=== PATIENT | male | born 1975 | race Caucasian/White ===

== ENCOUNTER 2024-04-04 11:33 | Inpatient (IN) | payer BC, SELFPAY ==
--- NOTE | ~2024-04-04 | US_ITS ---
EXAMINATION: US renal BI DATE: 04/05/2024 07:51 INDICATION: Acute kidney injury. TECHNIQUE: Multiple ultrasound grayscale images of the kidneys were obtained. COMPARISON: CT abdomen and pelvis 04/04/2024 FINDINGS: The right kidney measures 14.0 x 6.2 x 6.2 cm. The left kidney measures 13.1 x 6.4 x 5.1 cm. The kidn eys demonstrate normal parenchymal echogenicity. There is no hydronephrosis. The bladder is normal. T here is diffuse hepatic steatosis. IMPRESSION: 1. Normal kidneys. No hydronephrosis. 2. Diffuse hepatic steatosis. Reviewed, dictated and finalized at location A.
--- NOTE | ~2024-04-04 | CT_ITS ---
EXAMINATION: CT abdomen pelvis wo con DATE: 04/04/2024 13:23 INDICATION: Abdominal pain. Nausea and vomiting. Diarrhea. TECHNIQUE: Computed tomography (CT) of the abdomen and pelvis was performed without intravenous contr ast. Automated exposure control and iterative reconstruction technique were employed. The dose-length product was 913.08 mGy-cm. COMPARISON: None. FINDINGS: The visualized portions of the lung bases demonstrate mild atelectasis. No pleural effusion . The heart size is normal. No pericardial effusion. There is diffuse hepatic steatosis. The gallblad roberto, spleen, pancreas, adrenal glands, and left kidney are normal. There is a 1 mm stone in right kid mayur. There is diverticulosis of the colon without evidence of diverticulitis. There is liquid stool i n the colon correlating with the symptom of diarrhea. The appendix is normal. There are no dilated lo ops of bowel. There are no pathologically enlarged lymph nodes. There is no free intraperitoneal flui d. There is mild thoracic and lumbar spondylosis. IMPRESSION: 1. Diffuse hepatic steatosis. Reviewed, dictated and finalized at location A.
[2024-04-04 11:38] VITALS: BP 129/73; PULSE 106; RESP 18; TEMP 36.4; O2SAT 100
--- NOTE | 2024-04-04 12:13 | ED.GENADULT ---
HPI - General Adult General Chief complaint: Nausea/Vomiting/Diarrhea Stated complaint: n/v Time Seen by Provider: 04/04/24 11:44 History of Present Illness HPI narrative: 48-year-old male with history of type 2 diabetes presenting to the emergency department for evaluation nausea vomiting and diarrhea. Patient states Wednesday he started developing some diarrhea, on Wednesday developed to nausea and vomiting, on Wednesday felt improved but on Wednesday night he started having both symptoms again. Patient is not on insulin but he is on Mounjaro. Related Data Home Medications Medication Instructions Recorded Confirmed amlodipine 2.5 mg tablet 2.5 mg PO DAILY 04/04/24 04/04/24 fenofibrate nanocrystallized 145 145 mg PO DAILY 04/04/24 04/04/24 mg tablet glimepiride 2 mg tablet 2 mg PO BID 04/04/24 04/04/24 lisinopril 40 mg tablet 40 mg PO DAILY 04/04/24 04/04/24 metformin 1,000 mg tablet,extended 1,000 mg PO BID 04/04/24 04/04/24 release 24hr (osmotic) sitagliptin phosphate 100 mg 100 mg PO DAILY 04/04/24 04/04/24 tablet (Januvia) Allergies Allergy/AdvReac Type Severity Reaction Status Date / Time No Known Allergies Allergy Verified 04/04/24 15:35 Review of Systems Review of Systems: All systems reviewed & are unremarkable except as noted in HPI and below PMFSH Family History Family History (Updated 04/04/24 @ 15:12 by Atul Chiu RN) Father Colon cancer Mother Diabetes mellitus Heart disease Social History Social History Smoking status: Never smoker Alcohol intake: never Substance use: never Do You Feel Safe in your Home?: Yes Lack of Transportation: No Lack of Food: Never True Current Housing: I Have Housing Concerned About Future Housing: No Difficulty Paying Gas/Electric Bills: No Difficulty Paying for Meds: No Currently Unemployed: No Education: Decline to Answer Difficulty w/ Childcare or Family Care: No Spiritual care concerns: No Exam Narrative: APPEARANCE: Well appearing, no pain, no distress, well-nourished. HEAD: normocephalic, atraumatic. EYES: PERRLA/EOMI, conjunctivae clear. NOSE: Normal no drainage EARS:TMS clear with good light reflex. THROAT: Pharynx clear, no exudate. NECK: Supple. No adenopathy, no masses. RESPIRATORY: Airway patent, respirations nonlabored. Clear to auscultation bilaterally, no rales, rhonchi, wheezing. CARDIOVASCULAR: Regular rate and rhythm without murmurs rubs or gallops. ABDOMINAL: Right lower quadrant tenderness to palpation MUSCULOSKELETAL: Moves all extremities. Strength/ROM intact, No edema, No calf tenderness. NEURO: Alert. Cranial nerves II through XII intact. Good gait. Good coordination SKIN: Warm, dry. Normal Color Course Course Emergency Course: Patient was started on IV fluids, nephrology was consulted and patient was admitted to the hospitalist. Vital Signs Vital signs: Vital Signs Temperature 97.6 F 04/04/24 11:38 Pulse Rate 106 H 04/04/24 11:38 Respiratory Rate 18 04/04/24 11:38 Blood Pressure 129/73 04/04/24 11:38 Pulse Oximetry 100 04/04/24 11:38 Oxygen Delivery Room Air 04/04/24 11:38 Temperature 97.7 F 04/04/24 15:34 Pulse Rate 82 04/04/24 15:34 Respiratory Rate 20 04/04/24 15:34 Blood Pressure 144/64 H 04/04/24 15:34 Pulse Oximetry 100 04/04/24 15:34 Oxygen Delivery Room Air 04/04/24 14:56 Medical Decision Making MDM Narrative Medical decision making narrative: 48-year-old male present to the emergency department for evaluation of persistent nausea vomiting diarrhea and diffuse abdominal cramping. Patient is afebrile but does have a leukocytosis of 14.1 stable hemoglobin of 16.9. Patient has acute abnormalities on the CMP with a creatinine of 9.9 and BUN of 102. Patient's GFR is 6. Patient was treated with 2 L of IV fluid and IV Reglan and did feel improved. Nephrology was consulted. Case was discussed with hospitalist patient was a
[2024-04-04] MEDS: PANTOPRAZOLE SODIUM IV 40 MG VIAL IV PUSH (12:28)
[2024-04-04] MEDS: SODIUM CHLORIDE 0.9% IV 1,000 ML 999 ML IV CONT ×2 (12:28→13:13)
[2024-04-04] MEDS: METOCLOPRAMIDE HCL INJ 10 MG/2 ML VIAL IV PUSH (12:28)
[2024-04-04 12:42] LABS: Basophils Absolute Auto 0.1 K/mm3 (0.0-0.1); Basophils Percent Auto 0.4 % (0.2-1.2); Eosinophils Absolute Auto 0.1 K/mm3 (0-0.3); Eosinophils Percent Auto 0.5 % (0-4.4); Hematocrit 49.4 % (42.0-52.0); Hemoglobin 16.9 g/dL (14.0-18.0); Immature Granulocyte Absolute 0.15 K/mm3 (0.00-0.031); Immature Granulocyte Percent A 1.1 % (0-0.5); Lymphocytes Absolute Auto 1.18 K/mm3 (0.9-3.2); Lymphocytes Percent Auto 8.4 % (18.3-44.2); Mean Corpuscular HGB Conc 34.2 g/dl (32-36); Mean Corpuscular Volume 81.8 fl (80-100); Mean Platelet Volume 9.2 fl (7.4-10.4); Monocytes Absolute Auto 0.7 K/mm3 (0.1-0.6); Monocytes Percent Auto 5.2 % (2.6-8.5); Neutrophils Absolute Auto 11.9 K/mm3 (1.3-6.7); Neutrophils Percent Auto 84.4 % (45.5-73.1); Platelet Count Result 443 k/mm3 (150-375); Red Blood Count 6.04 M/mm3 (4.6-6.20); Red Cell Distribution Width 13.2 % (11.5-14.5); White Blood Count 14.1 K/mm3 (4.5-10.0)
[2024-04-04 12:53] LABS: Lactic Acid Reflex 1.4 mmol/L (0.7-2.0)
[2024-04-04 12:55] LABS: Alanine Aminotransferase 30 U/L (6-50); Albumin Level 5.2 g/dL (3.5-5.1); Alkaline Phosphatase 64 U/L (38-126); Anion Gap 20 mmol/L (4-12); Aspartate Amino Transferase 23 U/L (17-59); Bilirubin,Total 0.8 mg/dL (0.2-1.3); Blood Urea Nitrogen 102 mg/dL (9-20); Calcium 10.6 mg/dL (8.4-10.2); Carbon Dioxide 18 mmol/L (22-30); Chloride 92 mmol/L (98-107); Estimated CRCL calculation 9 ml/min; Estimated Glomerular Filt Rate 6; Glucose 232 mg/dL (65-110); Lipase 169 U/L (23-300); Potassium 4.7 mmol/L (3.4-5.0); Sodium 130 mmol/L (137-145)
[2024-04-04 14:05] VITALS: BP 126/72; PULSE 73; RESP 15; TEMP 36.8; O2SAT 97
[2024-04-04] MEDS: SODIUM CHLORIDE 0.9% IV 1,000 ML 125 ML IV CONT ×2 (14:13→21:56)
[2024-04-04 14:50] LABS: Appearance Urine Cloudy (Clear); Bacteria Urine None Seen /hpf; Bilirubin Urine Negative (Negative); Blood Urine Negative (Negative); Color Urine Dark Yellow (Yellow); Glucose Urine UA Trace mg/dL (Negative); Ketones Urine Trace mg/dL (Negative); Leukocyte Esterase Ur Trace LEU/UL (Negative); Need Manual Microscopic Reviewed; Nitrate Urine Negative (Negative); Non Pathogenic Casts >20; Protein Urine 2+ mg/dL (Negative); RBC Urine 0-2 /hpf (0-2); Specific Grav Ur 1.021 (1.001-1.035); Squamous Epithelial Cell Urine Moderate /hpf (Few); WBC Urine 0-5 /hpf (0-3)
[2024-04-04 14:52] LABS: Add Urine Microscopic? YES
[2024-04-04 15:00] VITALS: BP 144/64; PULSE 82; RESP 20; TEMP 36.5; O2SAT 100
[2024-04-04] MEDS: ONDANSETRON INJ 4 MG/2 ML VIAL IV PUSH (15:01)
[2024-04-04 15:05] VITALS: BMI 29.6
--- NOTE | 2024-04-04 15:09 | PC.NURSE ---
This patient, Kiran Olguin, was admitted to [facility] Surg Room 325-02 at 14:54. Patient/family oriented to hospital policies and general routines including ID bracelet, bed and alarms, visiting hours, pain management, procedures, bathroom and other care routines, personal items, smoking policy, room service/diet, and visiting hours. Information on how to activate the Rapid Response Team has been discussed. Patient/Family are encouraged to report perceived risks to care and to ask questions if they do not understand what they are told or what they should do.
[2024-04-04 15:34] VITALS: BP 144/64; PULSE 82; RESP 20; TEMP 36.5; O2SAT 100
[2024-04-04 18:56] LABS: Anion Gap 16 mmol/L (4-12); Blood Urea Nitrogen 101 mg/dL (9-20); Calcium 9.4 mg/dL (8.4-10.2); Carbon Dioxide 16 mmol/L (22-30); Chloride 101 mmol/L (98-107); Estimated CRCL calculation 10 ml/min; Estimated Glomerular Filt Rate 6; Glucose 88 mg/dL (65-110); Potassium 4.7 mmol/L (3.4-5.0); Sodium 133 mmol/L (137-145)
[2024-04-04 19:04] LABS: Creatine Kinase 67 U/L (55-170)
--- NOTE | 2024-04-04 20:05 | PM.IMHP ---
H&P: HPI History of Present Illness Date/Time: 04/04/24 21:15 Chief Complaint: Nausea, vomiting, diarrhea. Narrative: This is a pleasant 48-year-old male with hypertension and type 2 diabetes mellitus who presented to the emergency department via private vehicle for evaluation of nausea, vomiting, and diarrhea. The patient provides the following history. He has not been feeling well for several days. He started passing too numerous to count watery stools on Wednesday and Wednesday he developed nausea and multiple episodes of nonbloody and nonbilious emesis. He felt a bit better on Wednesday however the last 2 days his symptoms have returned and seemed to be worse. He is feeling weak and has had several near syncopal episodes when going from a seated to a standing position. He has noticed a decrease in his urine output. His has had mild GI symptoms but not nearly as severe. He has no known sick contacts and denies recent travel and antibiotic use. He does mention being started on Monjaro 4 weeks ago and he had his 4th dose last Wednesday. He had not been having any GI symptoms up until Wednesday however. He denies fever, chills, sweats, chest pain, shortness of breath, hematemesis, melena, hematochezia, and dysuria. In the ED: He was afebrile on arrival with stable blood pressures. Labs were significant for WBC count of 14.1, hemoglobin 16.9, sodium 130, chloride 92, carbon dioxide 18, anion gap 20, BUN 102, creatinine 9.90, glucose 232, lactic acid 1.4, calcium 10.6. Urine was dark with 2+ protein, trace glucose and ketones, and trace leukocyte esterase. CT of the abdomen and pelvis showed diffuse hepatic steatosis. He was given a 2 L normal saline bolus and metoclopramide and he is being admitted in this setting for further treatment. Later this evening the patient noticed a pretty precipitous drop in his glucose on his continuous glucose monitor and he was as low 56 for which he was given dextrose and a snack. Glucose increased to 121 but is now once again trending down words. He is on glimepiride 2 mg b.i.d. and reports last taking that yesterday. He has not had any of his other medications today either. Review of Systems Review of Systems: 12 systems were reviewed and are negative except for as per HPI. PMFSH Past Medical History Medical History (Updated 04/05/24 @ 01:28 by Maria Eugenia Barrera PA-C) Hepatic steatosis Noted on CT on 04/04/2024. Hypercholesterolemia Hypertension Kidney stones Type 2 diabetes mellitus Family History Family History Father Colon cancer Mother Diabetes mellitus Heart disease Social History Social History (Updated 04/05/24 @ 01:27 by Maria Eugenia Barrera PA-C) Social History: Surrogate medical decision maker: Christine Olguin, spouse. Code status: Full code. Smoking status: Never smoker Alcohol intake: never Substance use: never Do You Feel Safe in your Home?: Yes Lack of Transportation: No Lack of Food: Never True Current Housing: I Have Housing Concerned About Future Housing: No Difficulty Paying Gas/Electric Bills: No Difficulty Paying for Meds: No Currently Unemployed: No Education: Decline to Answer Difficulty w/ Childcare or Family Care: No Spiritual care concerns: No Meds Home Medications and Allergies Home Medications Medication Instructions Recorded Confirmed Type amlodipine 2.5 mg tablet 2.5 mg PO DAILY 04/04/24 04/04/24 History fenofibrate nanocrystallized 145 145 mg PO DAILY 04/04/24 04/04/24 History mg tablet glimepiride 2 mg tablet 2 mg PO BID 04/04/24 04/04/24 History lisinopril 40 mg tablet 40 mg PO DAILY 04/04/24 04/04/24 History metformin 1,000 mg tablet,extended 1,000 mg PO BID 04/04/24 04/04/24 History release 24hr (osmotic) sitagliptin phosphate 100 mg 100 mg PO DAILY 04/04/24 04/04/24 History tablet (Januvia) Allergies Allergy/AdvReac Type Severity Reaction Statu
[2024-04-04 21:14] VITALS: BP 126/67; PULSE 82; RESP 17; TEMP 36.2; O2SAT 97
[2024-04-04 21:14] LABS: Creatinine Urine 250.7 mg/dL; Total Protein Urine Random 27 mg/dL; Ur Ttl Prot Creatinine Ratio 0.11 mg/mg (0-0.20); Urea Random Urine 501 MG/DL
[2024-04-04 21:20] LABS: Eosinophil Urine None Seen % (None Seen); Urine Eos QC 2nd Tech Confirmed
[2024-04-04 21:25] LABS: Sodium Urine Random 28 meq/L
[2024-04-04 21:34] LABS: Glucose Point of Care 73 mg/dl (65-105)
[2024-04-04 23:11] LABS: Hemoglobin A1C 7.5 % (<5.7)
[2024-04-04] MEDS: LOPERAMIDE HCL 2 MG CAPSULE 4 MG PO (23:49)
[2024-04-04 23:56] LABS: Glucose Point of Care 58 mg/dl (65-105)
[2024-04-05] MEDS: DEXTROSE 50% 25 GM/50 ML SYRINGE IV PUSH (00:01)
[2024-04-05 01:11] LABS: Glucose Point of Care 97 mg/dl (65-105)
[2024-04-05] MEDS: DEXTROSE 5% 1,000 ML 1,000 ML 75 ML IV CONT (02:21)
[2024-04-05 04:57] LABS: Glucose Point of Care 85 mg/dl (65-105)
[2024-04-05] MEDS: SODIUM CHLORIDE 0.9% IV 1,000 ML 125 ML IV CONT (05:33)
[2024-04-05 05:35] VITALS: BP 129/70; PULSE 79; RESP 17; TEMP 36.2; O2SAT 97
[2024-04-05 06:47] LABS: Hematocrit 41.4 % (42.0-52.0); Hemoglobin 13.7 g/dL (14.0-18.0); Mean Corpuscular HGB Conc 33.1 g/dl (32-36); Mean Corpuscular Volume 84.5 fl (80-100); Mean Platelet Volume 9.3 fl (7.4-10.4); Platelet Count Result 303 k/mm3 (150-375); Red Cell Distribution Width 13.2 % (11.5-14.5)
[2024-04-05 06:54] LABS: Anion Gap 13 mmol/L (4-12); Blood Urea Nitrogen 97 mg/dL (9-20); Calcium 8.9 mg/dL (8.4-10.2); Carbon Dioxide 16 mmol/L (22-30); Chloride 105 mmol/L (98-107); Creatine Kinase 51 U/L (55-170); Estimated CRCL calculation 11 ml/min; Estimated Glomerular Filt Rate 7; Glucose 81 mg/dL (65-110); Magnesium 1.7 mg/dL (1.6-2.3); Phosphorus 3.1 mg/dL (2.5-4.5); Potassium 4.4 mmol/L (3.4-5.0); Sodium 134 mmol/L (137-145)
[2024-04-05 07:49] LABS: Hepatitis B Surface Antigen Negative (Negative)
[2024-04-05 08:07] LABS: Hepatitis B Surface Anti Res Negative
[2024-04-05] MEDS: amLODIPine BESYLATE 2.5 MG TABLET PO (08:12)
[2024-04-05] MEDS: DEXTROSE 5%/0.9% SOD CHL 1,000 ML 100 ML IV CONT (08:13)
[2024-04-05] MEDS: FENOFIBRATE NANOCRYSTALLIZED 145 MG TABLET PO (08:13)
[2024-04-05 08:29] VITALS: O2SAT 96
[2024-04-05 08:30] LABS: Glucose Point of Care 91 mg/dl (65-105)
[2024-04-05 08:30] LABS: Glucose Point of Care 73 mg/dl (65-105)
[2024-04-05 11:34] LABS: Glucose Point of Care 100 mg/dl (65-105)
--- NOTE | 2024-04-05 13:01 | PM.IMPN ---
Progress Note: A&P Assessment and Plan (1) Acute kidney injury: Code(s): N17.9 - Acute kidney failure, unspecified Status: Acute (2) Dehydration: Code(s): E86.0 - Dehydration Status: Acute (3) Hypoglycemia: Code(s): E16.2 - Hypoglycemia, unspecified Status: Acute (4) Type 2 diabetes mellitus: Code(s): E11.9 - Type 2 diabetes mellitus without complications Status: Acute (5) Hypertension: Code(s): I10 - Essential (primary) hypertension Status: Acute (6) Hepatic steatosis: Code(s): K76.0 - Fatty (change of) liver, not elsewhere classified Status: Acute Plan The patient presented to the emergency department for evaluation of nausea, vomiting, and diarrhea as detailed in HPI. Labs, imaging, EKG, and all reports were personally reviewed. He has an acute kidney injury which is likely related to a combination of factors including profound dehydration given ongoing vomiting and diarrhea with continued use of an CAROLINE-inhibitor. UA shows 2+ protein but no blood was noted. Bladder does not look enlarged on CT scan. Lisinopril, glimepiride, metformin, and Monjaro have been placed on hold. Monitor strict I/O. Renal ultrasound ordered for a.m.. Continue judicious IV fluid rehydration with close monitoring of volume status and renal function. Dr. Maier has been consulted for his input. Analgesics and antiemetics are available as needed. This evening his glucose started to drop and I suspect it will continue to stay low as he has been taking his oral diabetes medications which will be in his system much longer given his renal failure. Continue to monitor closely and add dextrose to fluid if he continues to have low readings. Initiate sliding scale insulin, Accu-Cheks, and hypoglycemic protocol. Blood pressures are stable and will be monitored closely while CAROLINE-inhibitor is on hold; continue amlodipine. Findings and treatment plan were discussed with the patient. Questions were solicited and answered to satisfaction. The patient's medical management will be taken over by the hospitalist team in a.m. 04/05/24: Renal function better. Persistent acidosis. Potassium normal. Glucose stable and remaining stable on D5. Nephrology consulted. FENa 0.7% to suggest pre-renal. FEUrea was 18%. Renal US showing normal kidneys. Hepatic steatosis noted. Healthy lifestyle choices were discussed. BP stable. -- Encourage oral intake. Will change to D5W with bicarb. Monitor renal function. DVT prophylaxis -SCDs Code status -full Subjective Date/time seen: 04/05/24 13:02 Interval history: 48yo male with DM and HTN here for nausea, vomitinig and diarrhea and found to have IRENE. He feels better today. UOP has increased. No hx of kidney problems but has been told he has protein in his urine in the past. He was eating small amounts but poor appetite. No nausea but still having diarrhea. Exam Narrative: AF 97.2 129/70 79 17 96% ra Gen - NARD Chest - CTA bilaterally, nml RR CV - RRR S1/S2 Abd - Soft, NT/ND, Positive BS Ext - No pedal edema Psych - Nml mood and affect Skin - Warm and dry Objective Data Vital Signs Vital Signs: Vital Signs - 24 hr 04/04/24 14:05 04/04/24 14:56 04/04/24 15:00 Temperature 98.2 F 97.7 F Pulse Rate 73 82 Respiratory Rate 15 20 Blood Pressure 126/72 144/64 H Pulse Oximetry 97 100 Oxygen Delivery Room Air 04/04/24 21:14 04/05/24 05:35 04/05/24 08:29 Temperature 97.2 F L 97.2 F L Pulse Rate 82 79 Respiratory Rate 17 17 Blood Pressure 126/67 129/70 Pulse Oximetry 97 97 96 Oxygen Delivery Room Air 04/04/24 15:34 Temperature 97.7 F Pulse Rate 82 Respiratory Rate 20 Blood Pressure 144/64 H Pulse Oximetry 100 Oxygen Delivery Intake/Output Intake/Output: Intake & Output 04/02/24 04/03/24 04/04/24 04/05/24 23:59 23:59 23:59 23:59 Intake Total 3514.6 1570.1 Balance 3514.6 1570.1 Meds/Results Medicat
--- NOTE | 2024-04-05 13:20 | PM.CNNEP ---
Assessment and Plan Assessment and plan (1) IRENE (acute kidney injury): Code(s): N17.9 - Acute kidney failure, unspecified Status: Acute Assessment and Plan: presumably nornal renal function at baseline thought to be secondary to GI loss (nausea/vomiting/diarrhea) evaluation to date: normal renal ultrasound urine electrolytes prerenal no significant proteinuria normal CPK urine eosinophils negative improvement noted in creatinine with IVFs started on bicarb fluids to compensate for acidosis if run into issues with low K+ or Ca++, switch to oral bicarb follow trend of repeat labs and UOP (2) Metabolic acidosis: Code(s): E87.20 - Acidosis, unspecified Status: Acute Assessment and Plan: due to IVF resuscitation, IRENE and possibly metformin use bicarb added to IVFs to compensate follow trend of CO2 (3) Hypertension: Code(s): I10 - Essential (primary) hypertension Status: Chronic Assessment and Plan: reasonable control CAROLINE-I on hold due to #1 follow trend of hemodynamics (4) Type 2 diabetes mellitus: Code(s): E11.9 - Type 2 diabetes mellitus without complications Status: Chronic Assessment and Plan: follow accu-cheks glycemic control per hospitalists I will continue follow the patient with you while he remains hospitalized and make further recommendations as deemed necessary. Thank you for allowing me to participate in care this patient. History of Present Illness Reason for Consult Consult date: 04/05/24 Reason for consult: acute renal failure Chief Complaint Chief complaint: Nausea/Vomiting/IRENE History of Present Illness Narrative: The patient is a 48-year-old male with a past medical history as outlined below who presented to [facility] Emergency Room with complaints of nausea, vomiting, and diarrhea. The patient reports he has not been feeling very well for last several days if not longer. He reports passing numerous liquid the/watery stools over last few days in association with nausea and multiple episodes of vomiting /emesis. His emesis was nonbloody and nonbilious and as far as he could tell, his diarrhea did not have any blood or mucus present. By Wednesday, he stated he felt a little better however the next day, this same symptoms recurred and seemed to be worse than what they were several days prior. Given these ongoing symptoms, he reports ongoing weakness and fatigue and dizziness/ lightheadedness whenever he attempts to go from a seated to standing position. In conjunction with his GI symptoms, he reports that there has been a decrease in his urine output as well. He denies any known sick contacts, recent travel, or antibiotic use. He does report that he started Mounjaro approximately a month ago for treatment of his diabetes with his last dose on Wednesday. He gave no other clinical symptoms with regard to fevers, chills, diaphoresis, chest pain, shortness of breath, or dysuria. Given these constellation of symptoms and the worsening nature of them in the last 48 hours, he came to the emergency room for further assessment. Workup and evaluation emergency room demonstrated the patient to be hemodynamically stable and afebrile. Routine blood tests were done which were significant for a white blood cell count of 14.1, hemoglobin of 16.9, sodium of 130, chloride 92, bicarb 18, BUN 102, creatinine of 9.9 with a glucose of 232. His calcium was also mildly elevated 10.6 with a lactic acid of 1.4. His urinalysis was significant for 2+ protein, trace glucose and ketones, and trace leukocyte esterase. Given his significant renal dysfunction by his labs, a CT scan of the abdomen pelvis was done which demonstrated diffuse hepatic steatosis but with no other acute intra-abdominal findings. While in the emergency room, he was given a total of 2 L normal saline bolus as well as IV Reglan. Given his GI symptoms
[2024-04-05 14:00] VITALS: BP 138/72; PULSE 77; RESP 18; TEMP 36.3; O2SAT 99
[2024-04-05] MEDS: SODIUM BICARBONATE 8.4% 150 MEQ in DEXTROSE 5% 1,000 ML 950 ML 75 MEQ IV CONT (15:10)
[2024-04-05 16:01] LABS: Glucose Point of Care 121 mg/dl (65-105)
[2024-04-05 20:41] LABS: Glucose Point of Care 141 mg/dl (65-105)
[2024-04-05 21:42] VITALS: BP 153/74; PULSE 77; RESP 16; TEMP 36.9; O2SAT 97
[2024-04-06] MEDS: SODIUM BICARBONATE 8.4% 150 MEQ in DEXTROSE 5% 1,000 ML 950 ML 75 MEQ IV CONT ×2 (05:34→23:55)
[2024-04-06 06:00] VITALS: BP 149/68; PULSE 79; RESP 16; TEMP 36.9; O2SAT 97
[2024-04-06 06:50] LABS: Basophils Percent Auto 0.5 % (0.2-1.2); Eosinophils Absolute Auto 0.2 K/mm3 (0-0.3); Eosinophils Percent Auto 3.2 % (0-4.4); Hematocrit 40.3 % (42.0-52.0); Hemoglobin 13.2 g/dL (14.0-18.0); Immature Granulocyte Absolute 0.04 K/mm3 (0.00-0.031); Immature Granulocyte Percent A 0.6 % (0-0.5); Lymphocytes Percent Auto 15.3 % (18.3-44.2); Mean Corpuscular HGB Conc 32.8 g/dl (32-36); Mean Corpuscular Hemoglobin 27.6 pg (26-34); Mean Corpuscular Volume 84.3 fl (80-100); Monocytes Percent Auto 14.5 % (2.6-8.5); Neutrophils Absolute Auto 4.3 K/mm3 (1.3-6.7); Neutrophils Percent Auto 65.9 % (45.5-73.1); Platelet Count Result 271 k/mm3 (150-375); Red Blood Count 4.78 M/mm3 (4.6-6.20); Red Cell Distribution Width 12.9 % (11.5-14.5); White Blood Count 6.5 K/mm3 (4.5-10.0)
[2024-04-06 07:41] LABS: Glucose Point of Care 162 mg/dl (65-105)
[2024-04-06 07:57] LABS: Albumin Level 3.9 g/dL (3.5-5.1); Anion Gap 9 mmol/L (4-12); Blood Urea Nitrogen 69 mg/dL (9-20); Calcium 8.9 mg/dL (8.4-10.2); Carbon Dioxide 20 mmol/L (22-30); Chloride 105 mmol/L (98-107); Estimated CRCL calculation 29 ml/min; Estimated Glomerular Filt Rate 19; Glucose 170 mg/dL (65-110); Magnesium 1.6 mg/dL (1.6-2.3); Phosphorus 2.2 mg/dL (2.5-4.5); Potassium 3.8 mmol/L (3.4-5.0); Sodium 134 mmol/L (137-145)
[2024-04-06] MEDS: FENOFIBRATE NANOCRYSTALLIZED 145 MG TABLET PO (09:39)
[2024-04-06] MEDS: amLODIPine BESYLATE 2.5 MG TABLET PO (09:39)
[2024-04-06 09:40] VITALS: PULSE 82; O2SAT 92
[2024-04-06 11:18] LABS: Glucose Point of Care 164 mg/dl (65-105)
--- NOTE | 2024-04-06 13:12 | P.PNNP_ITS ---
Progress Note: A&P Assessment and Plan (1) IRENE (acute kidney injury): Code(s): N17.9 - Acute kidney failure, unspecified Status: Acute Assessment and Plan: * presumably nornal renal function at baseline * thought to be secondary to GI loss (nausea/vomiting/diarrhea) * evaluation to date: * normal renal ultrasound * urine electrolytes prerenal * no significant proteinuria * normal CPK * urine eosinophils negative * improvement noted in creatinine with IVFs * follow trend of repeat labs and UOP (2) Metabolic acidosis: Code(s): E87.20 - Acidosis, unspecified Status: Acute Assessment and Plan: * due to IVF resuscitation, IRENE and possibly metformin use * started on bicarb fluids to compensate for acidosis * if run into issues with low K+ or Ca++, switch to oral bicarb * follow trend of CO2 (3) Hypertension: Code(s): I10 - Essential (primary) hypertension Status: Chronic Assessment and Plan: * reasonable control * CAROLINE-I on hold due to #1 * follow trend of hemodynamics (4) Type 2 diabetes mellitus: Code(s): E11.9 - Type 2 diabetes mellitus without complications Status: Chronic Assessment and Plan: * follow accu-cheks * glycemic control per hospitalists Will continue to follow. Subjective Date/time seen: 04/06/24 13:12 Interval history: Follow-up for acute kidney injury/acute renal failure. Renal function continues to slowly improve with current interventions; good urine output noted; nausea/vomiting seem to be doint better and diarrhea appears to be easing up as well; no other issues/events overnight or earlier this morning. Exam Narrative: General: WD/WN male in NAD Heart: normal S1 and S2; no rub Lungs: clear to auscultation Abdomen: soft, nontender, nondistended, positive bowel sounds Extremities: no cyanosis or clubbing; no edema Skin: warm and dry Objective Data Vital Signs Vital Signs: Vital Signs Temp Pulse Resp BP Pulse Ox O2 Del Method 04/06/24 13:00 97.5 F L 75 16 142/74 H 99 04/06/24 09:40 82 92 Room Air 04/06/24 06:00 98.4 F 79 16 149/68 H 97 04/05/24 20:00 Room Air 04/05/24 21:42 98.4 F 77 16 153/74 H 97 Intake/Output Intake/Output: Intake & Output 04/03/24 04/04/24 04/05/24 04/06/24 23:59 23:59 23:59 23:59 Intake Total 3514.6 2188.1 1720 Balance 3514.6 2188.1 1720 Meds/Results Medications: Active Medications Generic Name Dose Route Start Last Admin Trade Name Freq PRN Reason Stop Dose Admin Acetaminophen 650 mg 04/04/24 20:19 Acetaminophen 325 Mg Tablet PO Q6H PRN Mild Pain (1-3) or Fever Amlodipine Besylate 2.5 mg 04/05/24 09:00 04/06/24 09:39 Amlodipine Besylate 2.5 Mg Tablet PO 2.5 mg DAILY MUSTAPHA Administration Dextrose 12.5 gm 04/04/24 20:19 04/05/24 00:01 Dextrose 50% 25 Gm/50 Ml Syringe IV PUSH 12.5 gm PRN PRN Administration Hypoglycemia Protocol Fenofibrate 145 mg 04/05/24 09:00 04/06/24 09:39 Fenofibrate Nanocrystallized 145 Mg Tablet PO 145 mg DAILY MUSTAPHA Admin
--- NOTE | 2024-04-06 13:12 | PM.PNNEP ---
Progress Note: A&P Assessment and Plan (1) IRENE (acute kidney injury): Code(s): N17.9 - Acute kidney failure, unspecified Status: Acute Assessment and Plan: presumably nornal renal function at baseline thought to be secondary to GI loss (nausea/vomiting/diarrhea) evaluation to date: normal renal ultrasound urine electrolytes prerenal no significant proteinuria normal CPK urine eosinophils negative improvement noted in creatinine with IVFs follow trend of repeat labs and UOP (2) Metabolic acidosis: Code(s): E87.20 - Acidosis, unspecified Status: Acute Assessment and Plan: due to IVF resuscitation, IRENE and possibly metformin use started on bicarb fluids to compensate for acidosis if run into issues with low K+ or Ca++, switch to oral bicarb follow trend of CO2 (3) Hypertension: Code(s): I10 - Essential (primary) hypertension Status: Chronic Assessment and Plan: reasonable control CAROLINE-I on hold due to #1 follow trend of hemodynamics (4) Type 2 diabetes mellitus: Code(s): E11.9 - Type 2 diabetes mellitus without complications Status: Chronic Assessment and Plan: follow accu-cheks glycemic control per hospitalists Will continue to follow. Subjective Date/time seen: 04/06/24 13:12 Interval history: Follow-up for acute kidney injury/acute renal failure. Renal function continues to slowly improve with current interventions; good urine output noted; nausea/vomiting seem to be doint better and diarrhea appears to be easing up as well; no other issues/events overnight or earlier this morning. Exam Narrative: General: WD/WN male in NAD Heart: normal S1 and S2; no rub Lungs: clear to auscultation Abdomen: soft, nontender, nondistended, positive bowel sounds Extremities: no cyanosis or clubbing; no edema Skin: warm and dry Objective Data Vital Signs Vital Signs: Vital Signs Temp Pulse Resp BP Pulse Ox O2 Del Method 04/06/24 13:00 97.5 F L 75 16 142/74 H 99 04/06/24 09:40 82 92 Room Air 04/06/24 06:00 98.4 F 79 16 149/68 H 97 04/05/24 20:00 Room Air 04/05/24 21:42 98.4 F 77 16 153/74 H 97 Intake/Output Intake/Output: Intake & Output 05/06/24 04/04/24 04/05/24 04/06/24 23:59 23:59 23:59 23:59 Intake Total 3514.6 2188.1 1720 Balance 3514.6 2188.1 1720 Meds/Results Medications: Active Medications Generic Name Dose Route Start Last Admin Trade Name Freq PRN Reason Stop Dose Admin Acetaminophen 650 mg 04/04/24 20:19 Acetaminophen 325 Mg Tablet PO Q6H PRN Mild Pain (1-3) or Fever Amlodipine Besylate 2.5 mg 04/05/24 09:00 04/06/24 09:39 Amlodipine Besylate 2.5 Mg Tablet PO 2.5 mg DAILY MUSTAPHA Administration Dextrose 12.5 gm 04/04/24 20:19 04/05/24 00:01 Dextrose 50% 25 Gm/50 Ml Syringe IV PUSH 12.5 gm PRN PRN Administration Hypoglycemia Protocol Fenofibrate 145 mg 04/05/24 09:00 04/06/24 09:39 Fenofibrate Nanocrystallized 145 Mg Tablet PO 145 mg DAILY MUSTAPHA Administration Glucagon 1 mg 04/04/24 20:19 Glucagon For Inj 1 Mg Vial IM PRN PRN Hypoglycemia Protocol Glucose 15 gm 04/04/24 20:19 Glucose Oral Gel 15 Gm Of Glucse In 37.5 Gm Tube PO PRN PRN Hypoglycemia Protocol Dextrose 1,000 mls @ 100 mls/hr 04/04/24 20:19 Dextrose 5% 1,000 Ml IVPB PRN PRN Hypoglycemia Protocol Sodium Bicarbonate 150 meq/ 1,100 mls @ 75 mls/hr 04/05/24 13:10 04/06/24 05:34 Dextrose IV CONT 75 mls/hr .[id number] MUSTAPHA Administration Insulin Aspart 3 - 6 units 04/05/24 08:00 04/06/24 17:14 Insulin Aspart (*Bkc) 100 Units/Ml SUB-Q Not Given TIDWM MUSTAPHA Protocol Insulin Aspart 1 - 3 units 04/04/24 21:00 04/05/24 21:24 Insulin Aspart (*Bkc) 100 Units/Ml SUB-Q Not Given HS MUSTAPHA Protocol Loperamide HCl 2 mg
[2024-04-06 14:00] VITALS: BP 142/74; PULSE 75; RESP 16; TEMP 36.4; O2SAT 99
--- NOTE | 2024-04-06 14:47 | PM.IMPN ---
Progress Note: A&P Assessment and Plan (1) Acute kidney injury: Code(s): N17.9 - Acute kidney failure, unspecified Status: Acute Assessment and Plan: The patient presented to the emergency department for evaluation of nausea, vomiting, and diarrhea Cr 9.9 with BUN 102 and serum bicarb 16 with AG 13. Potassium remained normal. [place] related to dehydration from the n/v/d coupled with continued use of an CAROLINE-inhibitor. UA shows 2+ protein but no blood was noted. FENa 0.7% to suggest pre-renal. FEUrea was 18%. Renal US showing normal kidneys. CT abd/pelvis showing diffuse hepatic steatosis and liquid stool in colon. Patient started on IV fluids and dextrose added due to low blood glucose. Nephrology consulted. IV fluids changed to D5W with bicarb BUN 69 and Cr 3.5. Serum bicarb 20. Continue to follow (2) Dehydration: Code(s): E86.0 - Dehydration Status: Acute Assessment and Plan: Related to the nausea, vomiting and diarrhea. Nausea better. Diarrhea resolving. Tolerating oral intake Contineu IV fluid resuscitation (3) Hypoglycemia: Code(s): E16.2 - Hypoglycemia, unspecified Status: Acute Assessment and Plan: Glucose dropped to 58 early in his hospital course. Home diabetic medications held. Glucose more stable now (4) Type 2 diabetes mellitus: Code(s): E11.9 - Type 2 diabetes mellitus without complications Status: Acute Assessment and Plan: The patient's blood glucose was reviewed on 04/06 Glucose remains well controlled. Continue AccuCheks covering with sliding scale. Hypoglycemia protocol available as needed. Continue to follow (5) Hypertension: Code(s): I10 - Essential (primary) hypertension Status: Acute Assessment and Plan: Patient's blood pressure was reviewed on 04/06 Blood pressure remains well controlled. Will continue to follow (6) Hepatic steatosis: Code(s): K76.0 - Fatty (change of) liver, not elsewhere classified Status: Acute Assessment and Plan: Hepatic steatosis noted. Healthy lifestyle choices were discussed. Plan DVT prophylaxis -SCDs Code status -full Subjective Date/time seen: 04/06/24 14:47 Interval history: 48yo male with DM and HTN here for nausea, vomiting and diarrhea and found to have IRENE. Feeling better. Voiding well. Walking in the halls. Diarrhea is slowing and becoming more formed. Exam Narrative: AF 97.5 142/74 75 16 99% ra Gen - NARD Chest - CTA bilaterally, nml RR CV - RRR S1/S2 Abd - Soft, NT/ND, Positive BS Ext - No pedal edema Psych - Nml mood and affect Skin - Warm and dry Objective Data Vital Signs Vital Signs: Vital Signs - 24 hr 04/05/24 21:42 04/05/24 20:00 04/06/24 06:00 Temperature 98.4 F 98.4 F Pulse Rate 77 79 Respiratory Rate 16 16 Blood Pressure 153/74 H 149/68 H Pulse Oximetry 97 97 Oxygen Delivery Room Air 04/06/24 09:40 04/06/24 14:00 Temperature 97.5 F L Pulse Rate 82 75 Respiratory Rate 16 Blood Pressure 142/74 H Pulse Oximetry 92 99 Oxygen Delivery Room Air Intake/Output Intake/Output: Intake & Output 04/03/24 04/04/24 04/05/24 04/06/24 23:59 23:59 23:59 23:59 Intake Total 3514.6 2188.1 1720 Balance 3514.6 2188.1 1720 Meds/Results Medications: Active Medications Generic Name Dose Route Start Last Admin Trade Name Freq PRN Reason Stop Dose Admin Acetaminophen 650 mg 04/04/24 20:19 Acetaminophen 325 Mg Tablet PO Q6H PRN Mild Pain (1-3) or Fever Amlodipine Besylate 2.5 mg 04/05/24 09:00 04/06/24 09:39 Amlodipine Besylate 2.5 Mg Tablet PO 2.5 mg DAILY MUSTAPHA Administration Dextrose 12.5 gm 04/04/24 20:19 04/05/24 00:01 Dextrose 50% 25 Gm/50 Ml Syringe IV PUSH 12.5 gm PRN PRN Administration Hypoglycemia Protocol Fenofibrate 145 mg 04/05/24 09:00 04/06/24 09:39 Fenofibrate Nanocrystallize
[2024-04-06 16:42] LABS: Glucose Point of Care 156 mg/dl (65-105)
[2024-04-06 21:22] LABS: Glucose Point of Care 177 mg/dl (65-105)
[2024-04-06 22:00] VITALS: BP 146/89; PULSE 74; RESP 18; TEMP 36.5; O2SAT 98
[2024-04-07 06:00] VITALS: BP 131/79; PULSE 67; RESP 16; TEMP 36.8; O2SAT 100
[2024-04-07 06:13] LABS: Albumin Level 3.4 g/dL (3.5-5.1); Anion Gap 4 mmol/L (4-12); Blood Urea Nitrogen 44 mg/dL (9-20); Carbon Dioxide 30 mmol/L (22-30); Chloride 101 mmol/L (98-107); Estimated CRCL calculation 47 ml/min; Estimated Glomerular Filt Rate 34; Glucose 177 mg/dL (65-110); Magnesium 1.4 mg/dL (1.6-2.3); Potassium 3.3 mmol/L (3.4-5.0); Sodium 135 mmol/L (137-145)
[2024-04-07 07:31] LABS: Glucose Point of Care 176 mg/dl (65-105)
[2024-04-07] MEDS: amLODIPine BESYLATE 2.5 MG TABLET PO (08:46)
[2024-04-07] MEDS: POTASSIUM CHLORIDE 20 MEQ ER TABLET 40 MEQ PO (08:47)
[2024-04-07] MEDS: FENOFIBRATE NANOCRYSTALLIZED 145 MG TABLET PO (08:47)
[2024-04-07] MEDS: ENOXAPARIN 40 MG/0.4 ML SYRINGE SUB-Q (08:48)
[2024-04-07] MEDS: SODIUM CHLORIDE 0.9% IV 1,000 ML 75 ML IV CONT (08:53)
[2024-04-07] MEDS: MAGNESIUM SULF 2 GM/WATER 50ML 2 GM/50 ML BAG IVPB (08:55)
--- NOTE | 2024-04-07 09:31 | PM.PNNEP ---
Progress Note: A&P Assessment and Plan (1) IRENE (acute kidney injury): Code(s): N17.9 - Acute kidney failure, unspecified Status: Acute Assessment and Plan: slow and steady improvement presumably normal renal function at baseline thought to be secondary to GI loss (nausea/vomiting/diarrhea) evaluation to date: normal renal ultrasound urine electrolytes prerenal no significant proteinuria normal CPK urine eosinophils negative improvement noted in creatinine with IVFs follow trend of repeat labs and UOP (2) Hypokalemia: Code(s): E87.6 - Hypokalemia Status: Acute (3) Metabolic acidosis: Code(s): E87.20 - Acidosis, unspecified Status: Acute Assessment and Plan: due to IVF resuscitation, IRENE and possibly metformin use on bicarb fluids to compensate for acidosis since corrected, will change IVFs back to NS follow trend of CO2 (4) Hypertension: Code(s): I10 - Essential (primary) hypertension Status: Chronic Assessment and Plan: reasonable control CAROLINE-I on hold due to #1 follow trend of hemodynamics (5) Type 2 diabetes mellitus: Code(s): E11.9 - Type 2 diabetes mellitus without complications Status: Chronic Assessment and Plan: follow accu-cheks glycemic control per hospitalists Will continue to follow. Subjective Date/time seen: 04/07/24 09:31 Interval history: Follow-up for acute kidney injury/acute renal failure. Seems to be doing reasonably well; appreciative of change in diet since renal diet was so restrictive; renal function and metabolic acidosis continues to improve with current therapy; making reasonable urine output as well; Exam Narrative: General: WD/WN male in NAD Heart: normal S1 and S2; no rub Lungs: clear to auscultation Abdomen: soft, nontender, nondistended, positive bowel sounds Extremities: no cyanosis or clubbing; no edema Skin: warm and intact Objective Data Vital Signs Vital Signs: Vital Signs Temp Pulse Resp BP Pulse Ox 04/07/24 06:00 98.3 F 67 16 131/79 100 04/06/24 22:00 97.7 F 74 18 146/89 H 98 04/06/24 14:00 97.5 F L 75 16 142/74 H 99 Intake/Output Intake/Output: Intake & Output 05/07/24 05/08/24 05/09/24 05/10/24 23:59 23:59 23:59 23:59 Intake Total 3514.6 2188.1 3320 950 Balance 3514.6 2188.1 3320 950 Meds/Results Medications: Active Medications Generic Name Dose Route Start Last Admin Trade Name Freq PRN Reason Stop Dose Admin Acetaminophen 650 mg 04/04/24 20:19 Acetaminophen 325 Mg Tablet PO Q6H PRN Mild Pain (1-3) or Fever Amlodipine Besylate 2.5 mg 04/05/24 09:00 04/07/24 08:46 Amlodipine Besylate 2.5 Mg Tablet PO 2.5 mg DAILY MUSTAPHA Administration Dextrose 12.5 gm 04/04/24 20:19 04/05/24 00:01 Dextrose 50% 25 Gm/50 Ml Syringe IV PUSH 12.5 gm PRN PRN Administration Hypoglycemia Protocol Enoxaparin Sodium 40 mg 04/07/24 09:00 04/07/24 08:48 Enoxaparin 40 Mg/0.4 Ml Syringe SUB-Q 40 mg DAILY MUSTAPHA Administration Fenofibrate 145 mg 04/05/24 09:00 04/07/24 08:47 Fenofibrate Nanocrystallized 145 Mg Tablet PO 145 mg DAILY MUSTAPHA Administration Glucagon 1 mg 04/04/24 20:19 Glucagon For Inj 1 Mg Vial IM PRN PRN Hypoglycemia Protocol Glucose 15 gm 04/04/24 20:19 Glucose Oral Gel 15 Gm Of Glucse In 37.5 Gm Tube PO PRN PRN Hypoglycemia Protocol Dextrose 1,000 mls @ 100 mls/hr 04/04/24 20:19 Dextrose 5% 1,000 Ml IVPB PRN PRN Hypoglycemia Protocol Sodium Chloride 1,000 mls @ 75 mls/hr 04/07/24 07:45 04/07/24 08:53 Normal Saline Iv IV CONT 75 mls/hr .[id number] MUSTAPHA Administration Insulin Aspart 3 - 6 units 04/05/24 08:00 04/07/24 11:14 Insulin Aspart (*Bkc) 100 Units/Ml SUB-Q Not Given TIDWM MUSTAPHA Protocol Insulin Aspart 1 - 3 units 04/04/24 21:00
--- NOTE | 2024-04-07 09:31 | P.PNNP_ITS ---
Progress Note: A&P Assessment and Plan (1) IRENE (acute kidney injury): Code(s): N17.9 - Acute kidney failure, unspecified Status: Acute Assessment and Plan: * slow and steady improvement * presumably normal renal function at baseline * thought to be secondary to GI loss (nausea/vomiting/diarrhea) * evaluation to date: * normal renal ultrasound * urine electrolytes prerenal * no significant proteinuria * normal CPK * urine eosinophils negative * improvement noted in creatinine with IVFs * follow trend of repeat labs and UOP (2) Hypokalemia: Code(s): E87.6 - Hypokalemia Status: Acute (3) Metabolic acidosis: Code(s): E87.20 - Acidosis, unspecified Status: Acute Assessment and Plan: * due to IVF resuscitation, IRENE and possibly metformin use * on bicarb fluids to compensate for acidosis * since corrected, will change IVFs back to NS * follow trend of CO2 (4) Hypertension: Code(s): I10 - Essential (primary) hypertension Status: Chronic Assessment and Plan: * reasonable control * CAROLINE-I on hold due to #1 * follow trend of hemodynamics (5) Type 2 diabetes mellitus: Code(s): E11.9 - Type 2 diabetes mellitus without complications Status: Chronic Assessment and Plan: * follow accu-cheks * glycemic control per hospitalists Will continue to follow. Subjective Date/time seen: 04/07/24 09:31 Interval history: Follow-up for acute kidney injury/acute renal failure. Seems to be doing reasonably well; appreciative of change in diet since renal diet was so restrictive; renal function and metabolic acidosis continues to improve with current therapy; making reasonable urine output as well; Exam Narrative: General: WD/WN male in NAD Heart: normal S1 and S2; no rub Lungs: clear to auscultation Abdomen: soft, nontender, nondistended, positive bowel sounds Extremities: no cyanosis or clubbing; no edema Skin: warm and intact Objective Data Vital Signs Vital Signs: Vital Signs Temp Pulse Resp BP Pulse Ox 04/07/24 06:00 98.3 F 67 16 131/79 100 04/06/24 22:00 97.7 F 74 18 146/89 H 98 04/06/24 14:00 97.5 F L 75 16 142/74 H 99 Intake/Output Intake/Output: Intake & Output 04/04/24 04/05/24 04/06/24 04/07/24 23:59 23:59 23:59 23:59 Intake Total 3514.6 2188.1 3320 950 Balance 3514.6 2188.1 3320 950 Meds/Results Medications: Active Medications Generic Name Dose Route Start Last Admin Trade Name Freq PRN Reason Stop Dose Admin Acetaminophen 650 mg 04/04/24 20:19 Acetaminophen 325 Mg Tablet PO Q6H PRN Mild Pain (1-3) or Fever Amlodipine Besylate 2.5 mg 04/05/24 09:00 04/07/24 08:46 Amlodipine Besylate 2.5 Mg Tablet PO 2.5 mg DAILY MUSTAPHA Administration Dextrose 12.5 gm 04/04/24 20:19 04/05/24 00:01 Dextrose 50% 25 Gm/50 Ml Syringe IV PUSH 12.5 gm PRN PRN Administration Hypoglycemia Protocol Enoxaparin Sodium 40 mg 04/07/24 09:00 04/07/24 08:48 Enoxaparin 40 Mg/0.4 Ml Syringe SUB-Q 40 mg DAILY MUSTAPHA Administration
[2024-04-07 11:11] LABS: Glucose Point of Care 175 mg/dl (65-105)
--- NOTE | 2024-04-07 14:56 | PM.DS ---
DS: Admitting Diagnosis Discharge Date 04/07/24 Admitting Diagnosis Nausea, vomiting and diarrhea DS: Discharge Diagnosis Discharge Diagnosis (1) Acute kidney injury: Code(s): N17.9 - Acute kidney failure, unspecified Status: Acute (2) Dehydration: Code(s): E86.0 - Dehydration Status: Acute (3) Hypoglycemia: Code(s): E16.2 - Hypoglycemia, unspecified Status: Acute (4) Type 2 diabetes mellitus: Code(s): E11.9 - Type 2 diabetes mellitus without complications Status: Chronic (5) Hypertension: Code(s): I10 - Essential (primary) hypertension Status: Chronic (6) Hepatic steatosis: Code(s): K76.0 - Fatty (change of) liver, not elsewhere classified Status: Acute DS: Summary Hospital Course Reason for hospitalization: 48yo male with DM and HTN here for nausea, vomiting and diarrhea and found to have IRENE. Please see H&P for details. Hospital Course: The patient presented to the emergency department for evaluation of nausea, vomiting, and diarrhea and found to have IRENE. Cr 9.9 with BUN 102 and serum bicarb 16 with AG 13. Potassium remained normal. [place] related to dehydration from the n/v/d coupled with continued use of an CAROLINE-inhibitor. UA shows 2+ protein but no blood was noted.? He does have a hx of proteinuria. FENa 0.7% to suggest pre-renal. FEUrea was 18%. Renal US showing normal kidneys. CT abd/pelvis showing diffuse hepatic steatosis and liquid stool noted in colon. Patient was started on IV fluids and dextrose added due to low blood glucose. Glucose dropped to 58 early in his hospital course. Home diabetic medications held. Glucose stabilized. Nephrology consulted. IV fluids changed to D5W with bicarb. Hgb A1c 7.5. The patient's blood glucose was monitored with AccuCheks covering with sliding scale.? Hypoglycemia protocol was available as needed.?Glucose remained well controlled off of his medications. Hepatic steatosis noted by imaging.? Healthy lifestyle choices were discussed. His real function improved to BUN 44 and Cr 2.1. Metabolic acidosis resolved. He was eating and drinking normally. His diarrhea resolved. He overll did well and was able to be discharged home on 04/07/24 Status at Discharge Cognitive/behavioral status at discharge: stable Time Spent with Patient Time attestation: Total time spent providing and/or coordinating discharge services: 38 minutes Time spent: Greater than 30 minutes Exam Narrative: AF 98.3 131/79 67 16 100% ra Gen - NARD Chest - CTA bilaterally, nml RR CV - RRR S1/S2 Abd - Soft, NT/ND, Positive BS Ext - No pedal edema Psych - Nml mood and affect Skin - Warm and dry DS: Data Data Completed and Pending Labs on day of discharge: Labs from last 24 hours 04/07/24 04/07/24 04/07/24 11:03 07:20 05:49 Sodium 135 L Potassium 3.3 L Chloride 101 Carbon Dioxide 30 Anion Gap 4 BUN 44 H D Creatinine 2.10 H Estim Creat Clear Calc 47 Estimated GFR 34 L Glucose 177 H POC Capillary Glucose 175 H 176 H Calcium 9.0 Phosphorus 3.0 Magnesium 1.4 L Albumin 3.4 L 04/06/24 04/06/24 21:05 16:37 Sodium Potassium Chloride Carbon Dioxide Anion Gap BUN Creatinine Estim Creat Clear Calc Estimated GFR Glucose POC Capillary Glucose 177 H 156 H Calcium Phosphorus Magnesium Albumin Discharge Plan Discharge Attending physician on discharge: Darrion Mackay Consulting providers: Luis Carlos Maier Discharging Clinician: Darrion Mackay Anticipated Discharge Date/Time: 04/07/24 15:08 Patient Disposition: Home, Self-Care Activity: as tolerated Diet: diabetic Discharge Instructions: Please check glucose before meals and before bed. Record and bring into your doctor for review. Check blood pressure 1 to 2 times a day. Record and bring into your doctor for review. Call your doctor i
== END 2024-04-07 17:05 | disposition home or self-care (01) | DRG 683 ==
LOC: ANHED 13:40 → ANH3MEDSUR 14:21
PROVIDERS: Internal Medicine Nephrology; Physician Assistant; Admitting Provider Internal Medicine; Emergency Provider Emergency Medicine; PCP Physician Assistant; Visit Provider Internal Medicine
DX: N17.9 Acute kidney failure, unspecified (principal); E87.20 Acidosis, unspecified; E86.0 Dehydration; E11.649 Type 2 diabetes mellitus with hypoglycemia without coma; E78.00 Pure hypercholesterolemia, unspecified; I10 Essential (primary) hypertension; K76.0 Fatty (change of) liver, not elsewhere classified; R19.7 Diarrhea, unspecified; Z79.85 Long-term (current) use of injectable non-insulin antidiabetic drugs; Z79.84 Long term (current) use of oral hypoglycemic drugs
CPT/HCPCS: 36415; 74176; 76775; 80048; 80053; 80069; 81001; 81050; 82550; 82570; 82948; 83036; 83605; 83690; 83735; 84100; 84156; 84300; 84443; 84540; 85025; 85027; 85999; 86706; 87340; 96361; 96374; 96375; 99285; A9270; C9113; G0378; J1650; J2405; J2765; J3475; J7030; J7042; J7070